=== PATIENT | male | born 1990 | race African-American/Black ===

== ENCOUNTER 2017-08-25 12:08 | Emergency (ER) | payer OTHER ==
[~2017-08-25] VITALS: Ht 180.3 cm; Wt 68.0 kg
[~2017-08-25 12:08] MED LIST: FLEXERIL PO; NO CURRENT MEDS; SILVADENE1 % EX; TORADOL PO
[2017-08-25 13:43] LABS: INFLUENZA A NONE DETECTED (NONE DETECT); INFLUENZA B NONE DETECTED (NONE DETECT)
[2017-08-25] MEDS ORDERED: ZPAK PO (13:49)
[2017-08-25 13:58] VITALS: BP 123/86
== END 2017-08-25 13:59 | disposition home or self-care (01) | DRG 153 ==
LOC: ED 12:08
PROVIDERS: Family Medicine
DX: J06.9 Acute upper respiratory infection, unspecified (principal); F17.210 Nicotine dependence, cigarettes, uncomplicated

== ENCOUNTER 2017-11-04 23:29 | Emergency (ER) | payer OTHER ==
[~2017-11-04] VITALS: Ht 180.3 cm; Wt 66.8 kg
[~2017-11-04 23:29] MED LIST changes: +ZPAK PO
[2017-11-05 00:25] LABS: HEMATOCRIT 44.9 % (39.0-50.0); HEMOGLOBIN 14.5 g/dl (14.0-18.0); IMMATURE GRANULOCYTES 0.6 % (0.0-1.0); MEAN CELL VOLUME 87.9 fL CALC (80.0-100.0); MEAN CORPUSCULAR HGB 28.4 pG CALC (26.0-32.0); MEAN CORPUSCULAR HGB CONC 32.3 g/L CALC (32.0-36.0); NEUT# 10.78 thou/uL (1.82-7.42); RED BLOOD COUNT 5.11 mill/uL (4.70-6.10); RED CELL DISTRI WIDTH 13.3 % (11.5-15.5)
[2017-11-05 00:38] LABS: ALBUMIN 4.6 g/dL (3.2-5.0); ALKALINE PHOSPHATASE 79 u/l (38-126); AMYLASE 74 u/l (30-110); ANION GAP 17 (6-22 (CALC)); BILIRUBIN, TOTAL 0.7 mg/dL (0.0-1.4); BUN 16 mg/dL (9-20); BUN/CREATININE RATIO 19 (12-20 (CALC)); CARBON DIOXIDE 22 mmol/l (22-30); CHLORIDE 103 mmol/l (95-108); CREATININE 0.8 mg/dL (0.7-1.3); GFR > 60 ML/MIN (>=60 (CALC)); GFR FOR AFR.AMER. > 60 ML/MIN (>=60 (CALC)); LIPASE 49 u/l (23-300); POTASSIUM 3.7 mmol/l (3.5-5.1); SGOT/AST 24 u/l (17-59); SGPT/ALT 33 u/l (21-72); SODIUM 138 mmol/l (137-146); TOTAL PROTEIN 7.6 g/dL (6.3-8.2)
[2017-11-05 00:50] LABS: MYOGLOBIN 50 ng/mL (0 - 121)
[2017-11-05 01:45] LABS: URINE BILIRUBIN - DIPSTICK NEGATIVE (NEGATIVE); URINE BLOOD DIPSTICK NEGATIVE (NEGATIVE); URINE COLOR YELLOW; URINE GLUCOSE - DIPSTICK NEGATIVE (NEGATIVE); URINE KETONE 15 mg/dL (NEGATIVE); URINE LEUK ESTERASE NEGATIVE (NEGATIVE); URINE NITRITE - DIPSTICK NEGATIVE (Negative); URINE PH 6.5 (4.5-8.0); URINE PROTEIN - DIPSTICK TRACE mg/dL (NEG-TRACE); URINE SPECIFIC GRAVITY 1.015
[2017-11-05 01:52] LABS: BARBITURATES NEGATIVE (NEGATIVE); COCAINE NEGATIVE (NEGATIVE); METHADONE NEGATIVE (NEGATIVE); TETRAHYDROCANNABIONOL POSITIVE (NEGATIVE); TRICYLIC ANTIDEPRESSANTS NEGATIVE (NEGATIVE)
[2017-11-05 01:53] LABS: OXCYCODONE NEGATIVE (NEGATIVE); URINE CLARITY CLEAR
[2017-11-05] MEDS ORDERED: ULTRAM50 M1 PO (02:37)
[2017-11-05] MEDS ORDERED: CIPROFLOXACN500 MG PO (02:37)
[2017-11-05] MEDS ORDERED: ZOFRAN ODT4 MG PO (02:37)
[2017-11-05 04:00] VITALS: BP 113/55
== END 2017-11-05 04:00 | disposition home or self-care (01) | DRG 392 ==
LOC: ED 23:29
PROVIDERS: Emergency Medicine
DX: K52.9 Noninfective gastroenteritis and colitis, unspecified (principal); F17.210 Nicotine dependence, cigarettes, uncomplicated
CPT/HCPCS: S0164

== ENCOUNTER 2018-01-06 20:17 | Emergency (ER) | payer OTHER ==
[~2018-01-06] VITALS: Ht 180.3 cm; Wt 68.2 kg
[~2018-01-06 20:17] MED LIST changes: +CIPROFLOXACN500 MG PO; +ULTRAM50 M1 PO; +ZOFRAN ODT4 MG PO
[2018-01-06] MEDS ORDERED: AMOXICILLIN875 MG PO (21:08)
[2018-01-06] MEDS ORDERED: IBUPROFEN600 MG PO (21:08)
[2018-01-06 21:15] VITALS: BP 135/87
== END 2018-01-06 21:15 | disposition home or self-care (01) | DRG 159 ==
LOC: ED 20:17
DX: K04.7 Periapical abscess without sinus (principal); K03.81 Cracked tooth; F17.210 Nicotine dependence, cigarettes, uncomplicated

== ENCOUNTER 2018-06-09 07:30 | Emergency (ER) | payer SELFPAY ==
[~2018-06-09] VITALS: Ht 180.3 cm; Wt 77.3 kg
[~2018-06-09 07:30] MED LIST changes: +AMOXICILLIN875 MG PO; +IBUPROFEN600 MG PO
[2018-06-09] MEDS ORDERED: PENICILLN VK500 M1 PO (07:42)
[2018-06-09 07:53] VITALS: BP 113/68
== END 2018-06-09 08:00 | disposition home or self-care (01) | DRG 159 ==
LOC: ED 07:30
DX: K03.81 Cracked tooth (principal); F17.210 Nicotine dependence, cigarettes, uncomplicated

== ENCOUNTER 2019-04-25 14:58 | Emergency (ER) | payer SELFPAY ==
[~2019-04-25] VITALS: Ht 180.3 cm; Wt 72.4 kg
[~2019-04-25 14:58] MED LIST changes: +PENICILLN VK500 M1 PO
[2019-04-25] MEDS ORDERED: PREDNISONE10 MG PO (16:28)
[2019-04-25] MEDS ORDERED: ZOFRAN4 MG/TAB PO (16:28)
[2019-04-25 16:40] VITALS: BP 119/64
== END 2019-04-25 16:40 | disposition home or self-care (01) | DRG 195 ==
LOC: ED 14:58
DX: J10.1 Influenza due to other identified influenza virus with other respiratory manifestations (principal); F17.200 Nicotine dependence, unspecified, uncomplicated

== ENCOUNTER 2022-01-28 23:42 | Emergency (ER) | payer SELFPAY ==
[~2022-01-28] VITALS: Ht 180.3 cm; Wt 70.9 kg
[~2022-01-28 23:42] MED LIST changes: +PREDNISONE10 MG PO; +ZOFRAN4 MG/TAB PO
[2022-01-29 00:24] VITALS: BP 134/94
[2022-01-29 00:53] LABS: URINE BILIRUBIN - DIPSTICK NEGATIVE (NEGATIVE); URINE BLOOD DIPSTICK NEGATIVE (NEGATIVE); URINE COLOR YELLOW; URINE GLUCOSE - DIPSTICK NEGATIVE (NEGATIVE); URINE KETONE NEGATIVE (NEGATIVE); URINE LEUK ESTERASE NEGATIVE (NEGATIVE); URINE PH 7.5 (4.5-8.0); URINE PROTEIN - DIPSTICK NEGATIVE (NEG-TRACE); URINE UROBILINOGEN - DIPSTICK 0.2 E.U./dL (0.2)
[2022-01-29 00:54] LABS: URINE NITRITE - DIPSTICK NEGATIVE (Negative)
[2022-01-29 01:29] LABS: HEMOGLOBIN 13.1 g/dl (14.0-18.0); IMMATURE GRANULOCYTES 0.9 % (0.0-5.0); MEAN CELL VOLUME 87.6 fL CALC (80.0-100.0); MEAN CORPUSCULAR HGB 29.6 pG CALC (26.0-32.0); MEAN CORPUSCULAR HGB CONC 33.8 g/dL CAL (32.0-36.0); NEUT# 6.72 thou/uL (1.82-7.42); RED BLOOD COUNT 4.43 mill/uL (4.70-6.10)
[2022-01-29 01:33] LABS: HEMATOCRIT 38.8 % (39.0-50.0)
[2022-01-29 01:43] LABS: ALBUMIN 4.1 g/dL (3.2-5.0); ALKALINE PHOSPHATASE 71 u/l (38-126); ANION GAP 12 (6-22 (CALC)); BUN 7 mg/dL (9-20); BUN/CREATININE RATIO 9 (12-20 (CALC)); CARBON DIOXIDE 23 mmol/l (22-30); CHLORIDE 107 mmol/l (95-108); CREATININE 0.8 mg/dL (0.7-1.3); GFR FOR AFR.AMER. > 60 ML/MIN (>=60 (CALC)); GFR OTHER RACES > 60 ML/MIN (>=60 (CALC)); LIPASE 32 u/l (23-300); MAGNESIUM 1.5 mg/dL (1.6-2.3); POTASSIUM 3.3 mmol/l (3.5-5.1); SGOT/AST 21 u/l (17-59); SODIUM 139 mmol/l (137-146); TOTAL PROTEIN 6.4 g/dL (6.3-8.2)
[2022-01-29 01:44] LABS: BILIRUBIN, TOTAL 0.2 mg/dL (0.0-1.4)
[2022-01-29] MEDS ORDERED: PROMETHAZINE HY25 M1 PO (02:00)
[2022-01-29 02:02] VITALS: BP 134/94
== END 2022-01-29 02:11 | disposition home or self-care (01) | DRG 392 ==
LOC: ED 23:42
PROVIDERS: Family Medicine
DX: R11.2 Nausea with vomiting, unspecified (principal); F17.200 Nicotine dependence, unspecified, uncomplicated

== ENCOUNTER 2023-05-21 00:29 | Emergency (ER) | payer BC ==
[~2023-05-21] VITALS: Ht 180.3 cm; Wt 69.4 kg
[~2023-05-21 00:29] MED LIST changes: +AMOXICILLIN500 MG PO; +NAPROXEN375 MG PO; +PROMETHAZINE HY25 M1 PO; +TRAMADOL HCL50 MG PO
[2023-05-21] MEDS ORDERED: AMOX/K CLAV875 M1 PO (01:19)
[2023-05-21 02:04] VITALS: BP 129/81
== END 2023-05-21 02:04 | disposition home or self-care (01) | DRG 159 ==
LOC: ED 00:29
DX: K02.9 Dental caries, unspecified (principal); K04.7 Periapical abscess without sinus; F17.200 Nicotine dependence, unspecified, uncomplicated

== ENCOUNTER 2023-12-02 13:44 | Emergency (ER) | payer SELFPAY ==
[~2023-12-02] VITALS: Ht 180.3 cm; Wt 70.7 kg
[~2023-12-02 13:44] MED LIST changes: +AMOX/K CLAV875 M1 PO
[2023-12-02] MEDS ORDERED: TRAMADOL HYDROC50 M1 PO (14:33)
[2023-12-02] MEDS ORDERED: PENICILLN VK500 MG PO (14:33)
[2023-12-02 14:48] VITALS: BP 118/66
== END 2023-12-02 14:52 | disposition home or self-care (01) | DRG 159 ==
LOC: ED 13:44
DX: K02.9 Dental caries, unspecified (principal); S02.5XXA Fracture of tooth (traumatic), initial encounter for closed fracture; K04.7 Periapical abscess without sinus; F17.200 Nicotine dependence, unspecified, uncomplicated; X58.XXXA Exposure to other specified factors, initial encounter

== ENCOUNTER 2024-01-03 00:41 | Emergency (ER) | payer SELFPAY ==
[~2024-01-03] VITALS: Ht 180.3 cm; Wt 68.2 kg
[~2024-01-03 00:41] MED LIST changes: +PENICILLN VK500 MG PO; +TRAMADOL HYDROC50 M1 PO
[2024-01-03 00:49] VITALS: BP 122/77
[2024-01-03] MEDS ORDERED: ACETAMINOPHEN 500 MG TAB PO ONE (00:55)
[2024-01-03] MEDS ORDERED: PENICILLIN G BENZATHINE 1.2 MU/2 ML SYR IM ONE (00:55)
[2024-01-03] MEDS ORDERED: DICLOFENAC SODIUM 75 MG/TAB PO ONE (00:55)
[2024-01-03 01:00] VITALS: BP 119/77
[2024-01-03] MEDS ORDERED: VOLTAREN - GENE75 MG PO (01:00)
[2024-01-03 01:05] VITALS: BP 119/77
== END 2024-01-03 01:36 | disposition home or self-care (01) | DRG 159 ==
LOC: ED 00:41
DX: K04.7 Periapical abscess without sinus (principal); K02.9 Dental caries, unspecified; F17.200 Nicotine dependence, unspecified, uncomplicated; Z91.199 Patient's noncompliance with other medical treatment and regimen due to unspecified reason
CPT/HCPCS: J0561

== ENCOUNTER 2024-06-20 21:56 | Emergency (ER) | payer SELFPAY ==
[~2024-06-20] VITALS: Ht 180.3 cm; Wt 68.0 kg
[~2024-06-20 21:56] MED LIST changes: +VOLTAREN - GENE75 MG PO
[2024-06-20] MEDS ORDERED: DICLOFENAC SODIUM 75 MG/TAB PO ONE (22:40)
[2024-06-20] MEDS ORDERED: ACETAMINOPHEN 500 MG TAB PO ONE (22:40)
[2024-06-20 22:45] VITALS: BP 108/61
[2024-06-20] MEDS ORDERED: PENICILLIN G BENZATHINE 1.2 MU/2 ML SYR IM ONE (22:45)
[2024-06-20 23:00] VITALS: BP 106/66
[2024-06-20 23:15] VITALS: BP 96/69
== END 2024-06-20 23:24 | disposition home or self-care (01) | DRG 159 ==
LOC: ED 21:56
DX: K04.7 Periapical abscess without sinus (principal); K02.9 Dental caries, unspecified; F17.200 Nicotine dependence, unspecified, uncomplicated
CPT/HCPCS: J0561

== ENCOUNTER 2024-08-09 19:43 | Emergency (ER) | payer SELFPAY ==
[~2024-08-09] VITALS: Ht 180.3 cm; Wt 70.0 kg
[2024-08-09 19:51] VITALS: BP 119/59
[2024-08-09 20:00] VITALS: BP 114/65
[2024-08-09] MEDS ORDERED: KETOROLAC TROMETHAMINE 30 MG/ML SDV IM ONE (20:00)
[2024-08-09] MEDS ORDERED: traMADol HCL 50 MG/TAB PO ONE (20:00)
[2024-08-09] MEDS ORDERED: AMOXICILLIN & POT CLAVULANATE 875 MG/TAB PO ONE (20:00)
[2024-08-09] MEDS ORDERED: AMOX/K CLAV875 M1 PO (20:03)
[2024-08-09] MEDS ORDERED: NAPROXEN500 MG PO (20:03)
[2024-08-09 20:15] VITALS: BP 117/69
[2024-08-09 20:22] VITALS: BP 117/69
== END 2024-08-09 20:25 | disposition home or self-care (01) | DRG 159 ==
LOC: ED 19:43
DX: K04.7 Periapical abscess without sinus (principal); K02.9 Dental caries, unspecified; S02.5XXA Fracture of tooth (traumatic), initial encounter for closed fracture; F17.200 Nicotine dependence, unspecified, uncomplicated; X58.XXXA Exposure to other specified factors, initial encounter